=== PATIENT | female | born 1995 | race Caucasian/White ===

== ENCOUNTER 2016-05-30 17:00 | Emergency (ER) | payer OTHER, SELFPAY ==
[2016-05-30] MEDS ORDERED: predniSONE 20 MG TAB ONE (17:45)
== END 2016-05-30 17:46 | disposition home or self-care (01) ==
LOC: NAV ERS 17:00
DX: O99.512 Diseases of the respiratory system complicating pregnancy, second trimester (principal); J20.9 Acute bronchitis, unspecified; Z3A.18 18 weeks gestation of pregnancy
CPT/HCPCS: 99283; J7506

== ENCOUNTER 2017-03-08 09:38 | Emergency (ER) | payer OTHER, SELFPAY ==
[2017-03-08] MEDS ORDERED: Acetaminophen 500 MG TAB ONE (09:59)
[2017-03-08] MEDS ORDERED: Benzonatate 100 MG CAP ONE (10:07)
--- NOTE | 2017-03-08 10:15 | RAD ---
CHEST TWO VIEWS: History: Cough. Flu like symptoms. Comparison: None. FINDINGS: Lungs are clear. No pneumothorax or effusion. Cardiac silhouette and mediastinal contours are within normal limits. No acute osseous abnormality. IMPRESSION: No acute intrathoracic abnormality. POS: [id number]
== END 2017-03-08 10:45 | disposition home or self-care (01) ==
LOC: NAV ERS 09:38
DX: J11.1 Influenza due to unidentified influenza virus with other respiratory manifestations (principal); F17.210 Nicotine dependence, cigarettes, uncomplicated
CPT/HCPCS: 71020; 99406

== ENCOUNTER 2017-08-18 08:59 | Emergency (ER) | payer SELFPAY | END 2017-08-18 09:28 | disposition home or self-care (01) | LOC: NAV ERS 08:59 | DX: J02.9 Acute pharyngitis, unspecified (principal); F17.210 Nicotine dependence, cigarettes, uncomplicated | CPT/HCPCS: 99282 ==

== ENCOUNTER 2018-06-27 12:37 | Emergency (ER) | payer SELFPAY ==
[2018-06-27] MEDS ORDERED: Sodium Chloride 0.9% 1,000 ML ONE (13:00)
[2018-06-27] MEDS ORDERED: Metoclopramide HCl 10 MG/2 ML VIAL ONE (13:00)
[2018-06-27] MEDS ORDERED: diphenhydrAMINE 50 MG/ML VIAL ONE (13:00)
== END 2018-06-27 14:00 | disposition home or self-care (01) ==
LOC: NAV ERS 12:37
DX: G43.909 Migraine, unspecified, not intractable, without status migrainosus (principal); F17.210 Nicotine dependence, cigarettes, uncomplicated
CPT/HCPCS: 96365; 96375; J1200; J2765; J7050

== ENCOUNTER 2020-06-05 10:55 | Emergency (ER) | payer SELFPAY | END 2020-06-05 11:20 | disposition home or self-care (01) | LOC: NAV ERS 10:55 | DX: J06.9 Acute upper respiratory infection, unspecified (principal); F17.210 Nicotine dependence, cigarettes, uncomplicated | CPT/HCPCS: 99283 ==

== ENCOUNTER 2021-01-05 14:55 | Emergency (ER) | payer SELFPAY | END 2021-01-05 15:55 | disposition home or self-care (01) | LOC: NAV ERS 14:55 | DX: J02.9 Acute pharyngitis, unspecified (principal); J45.909 Unspecified asthma, uncomplicated; F17.210 Nicotine dependence, cigarettes, uncomplicated | CPT/HCPCS: 87081; 87430; 99283 ==

== ENCOUNTER 2022-04-10 09:26 | Emergency (ER) | payer SELFPAY ==
[2022-04-10] MEDS ORDERED: Acetaminophen 500 MG TAB ONE (10:49)
[2022-04-10] MEDS ORDERED: guaiFENesin ER 600 MG TAB PO SCH (11:15)
[2022-04-10] MEDS ORDERED: Acetaminophen 500 MG TAB PO SCH (11:15)
== END 2022-04-10 11:48 | disposition home or self-care (01) ==
LOC: NAV ERS 09:26
DX: J20.8 Acute bronchitis due to other specified organisms (principal); Z20.822 Contact with and (suspected) exposure to COVID-19; F17.210 Nicotine dependence, cigarettes, uncomplicated
CPT/HCPCS: 71046; 87804; U0003; U0005

== ENCOUNTER 2024-07-26 10:06 | Emergency (ER) | payer SELFPAY ==
[2024-07-26] MEDS ORDERED: predniSONE 20 MG TAB ONE (10:44)
== END 2024-07-26 10:50 | disposition home or self-care (01) ==
LOC: NAV ERS 10:06
DX: J06.9 Acute upper respiratory infection, unspecified (principal); J45.909 Unspecified asthma, uncomplicated; F17.210 Nicotine dependence, cigarettes, uncomplicated
CPT/HCPCS: 99283; J7512

== ENCOUNTER 2025-01-30 22:19 | Emergency (ER) | payer SELFPAY ==
[2025-01-30] MEDS ORDERED: predniSONE 20 MG TAB ONE (23:20)
== END 2025-01-30 23:23 | disposition home or self-care (01) ==
LOC: NAV ERS 22:19
DX: J20.9 Acute bronchitis, unspecified (principal); B34.9 Viral infection, unspecified; F17.210 Nicotine dependence, cigarettes, uncomplicated
CPT/HCPCS: 87081; 87428; 87430; 99283; J7512